=== PATIENT | male | born 1990 | race Caucasian/White ===

== ENCOUNTER → 2016-10-03 | Day surgery (SDC) | payer BC ==
[2016-09-27 10:31] VITALS: Ht 189.2 cm; Wt 111.4 kg
[~2016-10-03] VITALS: Ht 189.2 cm; Wt 111.4 kg
[~2016-10-03] MED LIST: ATROPINE SULFATE 0.1 MG/ML 5ML SYR IV PRN; BUPIVACAINE 0.5 % 5 MG/1 ML PF 10ML VIAL ONE; CLINDAMYCIN PHOS 150 MG/ML 2 ML VIAL IV SCH; DEXAMETHASONE SOD INJ 4 MG/ML VIAL ONE; EpINEphrine INJ 1MG/ML AMP 1 MG/ML AMP ONE; FENTANYL CITRATE INJ 50 MCG/1 ML 2 ML VIAL IV PRN; FENTANYL CITRATE INJ 50 MCG/1 ML 2 ML VIAL ONE; HYDR-5688 PO; KETOROLAC TROMETHAMINE 30 MG/ML VIAL IV. PRN; KETOROLAC TROMETHAMINE 30 MG/ML VIAL ONE; LABETALOL HCL IV 5 MG/ML 20ML IV PRN; LACTATED RINGER'S 1000ML 1,000 ML IV SCH; LIDOCAINE HCL 2% 2 ML VIAL (20MG/ML) ONE; MIDAZOLAM HCL 1 MG/ML 2ML VIAL ONE; MULTTAB58 PO; ONDANSETRON INJ 2 MG/ML 2 ML VIAL IV PRN; ONDANSETRON INJ 2 MG/ML 2 ML VIAL ONE; OXYCODONE/ACETAMINOPHEN 5-325 TAB PO PRN; PROPOFOL IV EMULSION 10 MG/ML 20 ML VIAL IV ONE; ROPIVACAINE 0.5% 5 MG/ML 30 ML VIAL ONE; SODIUM CHLORIDE 0.9% 1000ML 1,000 ML IV SCH; ZINCCAP PO
--- NOTE | 2016-10-03 07:45 | History & Physical Bridge - [place] ---
H&P Re-Evaluation Bridge Note: I have examined the patient, reviewed the History & Physical and in the interval since the performance of the History & Physical I have noted the following changes of clinical significance: No changes noted
--- NOTE | 2016-10-03 08:28 | [facility] Post Operative Brief Note ---
Immediate Operative Summary Operative Date Oct 03, 2016. Pre-Operative Diagnosis Right Knee Lateral Meniscus Tear Post-Operative Diagnosis Same Procedure(s) Performed Right Knee Arthroscopy, Partial Lateral Meniscectomy, Chondroplasty Surgeon Dr. Lozano [employer] Broker Surgeon(s) Hector Yun PA-C Estimated Blood Loss 0 mL Specimens None Anesthesia LMA Complication(s) None Disposition Recovery Room / PACU
--- NOTE | 2016-10-03 08:40 | Discharge Instructions-SurgCtr ---
Discharge Instructions Visit Reason for Visit: Right Knee Acute Lateral Meniscal Tear; Pain Discharge Discharge Diagnosis / Problem: SAME ABOVE Discharge Goals Goal(s): Decrease discomfort, Improve function Activity Recommendations Activity Limitations: as noted below Lifting Limitations: until after follow-up appointment Exercise/Sports Limitations: rest today Anesthesia MEDICATIONS: * Resume previous medications unless instructed otherwise by your surgeon. * Always take pain medication on a full stomach or with food to avoid upset stomach. * Do not drink alcohol or drive while taking narcotics. * Ibuprofen or Tylenol may be taken if narcotic not needed. SPECIAL CARE INSTRUCTIONS: __ None _X_ Keep extremity elevated and iced x 48 hours; apply ice 20-30 minutes 8-10 times/day. May remove at night. __ Crutches __ May discard when able __ Brace/Post-op shoe __ 24 hrs/day __ Remove at night _X_ Dressing __ Maintain until seen in office, may shower with plastic over site _X_ Remove dressings in 24-48 hours and then may shower _X_ Cover incisions with band-aids after showering __ Do not remove steri-strips Call physician if chills or temperature rises above 102 degrees or pain unrelieved by prescribed pain medications. Office [phone] . Post Anesthesia Instructions: If you have had General Anesthesia or IV Sedation: * Do not drive today. * Resume driving when surgeon permits. * Do not make important decisions or sign legal documents today. * Call surgeon for: 1. Temperature elevations greater than 101 degrees F. 2. Uncontrollable pain. 3. Excessive bleeding. 4. Persistent nausea and vomiting. 5. Medication intolerance (nausea, vomiting or rash). * For nausea and vomiting use only clear liquids such as: tea, soda, bouillon until nausea subsides, then gradually increase diet as tolerated. * If you have any concerns or questions, call your surgeon's office. If physician is unavailable and it is an emergency, call 911 or go to the nearest emergency room. . Instructions / Follow-Up Instructions / Follow-Up MEDICATIONS: * Resume previous medications unless instructed otherwise by your surgeon. * Always take pain medication on a full stomach or with food to avoid upset stomach. * Do not drink alcohol or drive while taking narcotics. * Ibuprofen or Tylenol may be taken if narcotic not needed. SPECIAL CARE INSTRUCTIONS: __ None __ Keep extremity elevated and iced x 48 hours; apply ice 20-30 minutes 8-10 times/day. May remove at night. __ Crutches __ May discard when able __ Brace/Post-op shoe __ 24 hrs/day __ Remove at night __ Dressing __ Maintain until seen in office, may shower with plastic over site __ Remove dressings in 24-48 hours and then may shower __ Cover incisions with band-aids after showering __ Do not remove steri-strips Call physician if chills or temperature rises above 102 degrees or pain unrelieved by prescribed pain medications. Office [phone] Diet Recommendations Home Diet: resume previous diet Procedures Procedures Performed: Right Knee Arthroscopy, Partial Lateral Meniscectomy, Chondroplasty Pending Studies Studies pending at discharge: no Medical Emergencies . Who to Call and When: Medical Emergencies: If at any time you feel your situation is an emergency, please call 911 immediately. . Non-Emergent Contact Non-Emergency issues call your: Primary Care Provider . . "Provider Documentation" section prepared by Kayden Yun.
--- NOTE | 2016-10-03 08:58 | OPERATIVE REPORT ---
DATE OF OPERATION: 10/03/2016 PREOPERATIVE DIAGNOSIS: Lateral meniscus tear right knee. POSTOPERATIVE DIAGNOSES: 1. Lateral meniscus tear, right knee. 2. Chondral defect, grade II-III of lateral femoral condyle flexion surface of probably 1.2 cm in size. 3. He had a little intercondylar notch cyst. PROCEDURE: 1. Right knee arthroscopy. 2. Partial lateral meniscectomy. 3. Chondroplasty of lateral femoral condyle. 4. Removal of intercondylar notch cyst. SURGEON: Dr. Lozano. TRAP OPERATOR: Kayden Yun PA-C. ANESTHESIOLOGIST: Dr. Foote. ANESTHESIA: General. DRAINS: None. COMPLICATIONS: None. CONDITION: The patient tolerated the procedure well and returned to the recovery room in apparent satisfactory condition. INDICATIONS FOR SURGERY: Chuy is a 26-year-old male that has had increasing symptomatology of his right knee. He has had a prior knee arthroscopy with a partial lateral meniscectomy. Went over treatment options and after evaluating him and his MRI and his history, elected to go ahead and proceed with surgery with partial lateral meniscectomy. The procedure, expected outcome, side effects, risks were all explained. PROCEDURE: The patient was taken to the OR at which time he was placed supine on the operating table and put to sleep by the anesthesia department. Examination of the knee was performed. Ligamentous ko it was stable. Went ahead and prepped and draped in the usual sterile fashion. We began arthroscopic examination in the anteromedial and anterolateral portals. We found the medial meniscus to be normal. ACL to be normal. We found a tear of the posterior horn of the medial meniscus. It was right at the popliteus junction. We came in with upbiting scissors and trimmed it back to a stable rim. It was sort of a fish mouth tear. We trimmed it to a stable rim and thought this would heal back on its own. There was a condylar defect on his lateral femoral condyle, it is about 1 x 2 cm in size. A chondroplasty was done here. We inspected the patellofemoral joint. There were some plica bands and it was shaved out. The articular surfaces here all looked to be good. The knee then was copiously irrigated. All cannulas were removed. Portals were closed with 4-0 nylon sutures. 30 mL of ropivacaine, a mL of epinephrine and 10 mg of Toradol was placed in the knee joint. Placed a sterile dressing of Xeroform, 4 x 4, ABD, Sof-Rol, and Bradly bandage and returned back to recovery room in apparent satisfactory condition. SURGICAL FINDINGS: 1. Lateral meniscus tear. 2. Grade II-III articular damage to the lateral femoral condyle, 1 x 2 cm in size. 3. Intercondylar notch cyst. I attest to the content of the Intraoperative Record and any orders documented therein. Any exceptio ns are noted below.
[2016-10-03 09:25] VITALS: TEMP 36.6
[2016-10-03 10:00] VITALS: BP 150/75; PULSE 56; O2SAT 98
--- NOTE | 2016-10-03 10:06 | Anesthesia Progress Nt - [facility] ---
Anesthesia Post Op Note Date & Time Oct 03, 2016 at 10:05 Vital Signs Pain Intensity: 4 Vital Signs Past 12 Hours Date Time Temp Pulse Resp B/P Pulse Ox O2 Delivery O2 Flow Rate FiO2 10/03/16 10:00 56 16 150/75 98 Room Air 10/03/16 09:25 36.6 48 16 118/71 98 Room Air 10/03/16 09:10 61 21 10/03/16 09:10 59 21 98 10/03/16 09:09 141/80 10/03/16 09:09 36.7 64 16 141/80 98 Room Air 10/03/16 09:05 58 22 10/03/16 09:05 59 22 98 10/03/16 09:03 146/76 10/03/16 09:00 59 14 100 10/03/16 09:00 59 14 10/03/16 08:59 139/65 10/03/16 08:55 57 14 10/03/16 08:55 57 14 100 10/03/16 08:54 129/74 10/03/16 08:50 58 6 10/03/16 08:50 52 6 100 10/03/16 08:49 45 8 100 10/03/16 08:49 46 8 10/03/16 08:48 127/60 10/03/16 08:44 46 3 10/03/16 08:44 45 3 100 10/03/16 08:43 133/66 10/03/16 08:39 48 15 10/03/16 08:39 36.6 48 16 136/66 99 Mask 9 10/03/16 08:39 48 15 100 10/03/16 07:19 36.5 52 20 129/81 100 Room Air Notes Mental Status: alert / awake / arousable, participated in evaluation Pt Amnestic to Procedure: Yes Nausea / Vomiting: adequately controlled Pain: adequately controlled Airway Patency, RR, SpO2: stable & adequate BP & HR: stable & adequate Hydration State: stable & adequate Anesthetic Complications: no major complications apparent
--- NOTE | 2016-10-05 06:54 | EDITING REQUIRED CODING QUERY ---
CQMENISCUS TEAR To promote full compliance with coding requirements relating to patient care physician participation is requested in all cases of die cutting machine operator uncertainty. Please assist us with the question(s) below: Please specify the type of Meniscus Tear by placing an "X" within the parenthesis (). If other please document type. (x) Current Injury () Old Injury DOS 10/03/16 () Other: (Please Specify) Thank you Rachelle Coto
== END | disposition home or self-care (01) ==
LOC: X.SURG 07:09
PROVIDERS: ATTEND Orthopaedic Surgery
DX: S83.281A Other tear of lateral meniscus, current injury, right knee, initial encounter (principal); X58.XXXA Exposure to other specified factors, initial encounter; M67.51 Plica syndrome, right knee; M25.861 Other specified joint disorders, right knee